=== PATIENT | male | born 1990 | race Caucasian/White ===

== ENCOUNTER → 2023-08-12 10:00 | Outpatient (CLI) | payer OTHER, SELFPAY ==
--- NOTE | ~2023-08-12 | US_ITS ---
EXAMINATION: US soft tissue LE LT DATE: 08/12/2023 10:48 INDICATION: Chronic palpable area at the left lower leg TECHNIQUE: Multiple grayscale and Doppler ultrasound images of the region of concern at the lateral l eft calf were obtained. COMPARISON: None FINDINGS: 3.0 x 1.3 x 3.0 cm hypoechoic mass with smooth well-defined margins in the subcutaneous tissues at th e region of concern. The mass abuts and exerts mild mass effect upon but does not transgress the unde rlying muscular fascia. Minimal vascular flow on color Doppler along the periphery of a small portion of the mass. No definitive internal vascular flow on color Doppler. IMPRESSION: 1. Nonspecific 3.0 x 1.3 x 3.0 cm subcutaneous hypoechoic lesion at the region of concern. This could represent either a complex cystic lesion such as an epidermoid cyst or neoplastic soft tissue mass w hich could be either benign or less likely malignant. Reviewed, dictated and finalized at location A. IMPRESSION: 1. Nonspecific 3.0 x 1.3 x 3.0 cm subcutaneous hypoechoic lesion at the region of concern. This could represent either a complex cystic lesion such as an epid ermoid cyst or neoplastic soft tissue mass which could be either benign or less likely malignant.
== END ==
PROVIDERS: PCP Nurse Practitioner; Visit Provider Nurse Practitioner
DX: R22.9 Localized swelling, mass and lump, unspecified (principal)
CPT/HCPCS: 76882

== ENCOUNTER 2023-09-09 02:33 | Day surgery (SDC) | payer OTHER, SELFPAY ==
[2023-09-04 09:38] VITALS: BMI 28.0
--- NOTE | 2023-09-04 09:42 | PC.NURSE ---
Report to the Outpatient Waiting Room, entrance under the green pavilion located off [facility], at time 1000 on date 09/09/23. Planned Procedure Time: 1100. Time changes happen often and if your time is changed the preop area will call you the afternoon before. - You and your visitor will be asked to self-screen and do not enter if you have any COVID symptoms. - A mask is optional within the hospital at this time. Patients may have LIGHT BREAKFAST. Take the following medications with a SIP of water the morning of surgery: PER USUAL DO NOT STOP ANY OF YOUR OTHER PRESCRIPTION MEDICATIONS PRIOR TO SURGERY ?EXCEPT THE FOLLOWING Medications to discontinue per physician: N/A Date to take last dose: N/A Please no make-up, nail central african, hairspray, perfume, deodorant, or body powder the day of surgery. No jewelry (including any body piercings) or valuables the day of surgery, leave them at home. Please take a shower or bath the night before, or the morning of, surgery with an antibacterial soap. Wear comfortable, loose fitting clothing. - Jewelry must be removed prior to entering the operating room. Rings and piercings that are not removed may be cut off. - The hospital will not accept responsibility for valuables. - Please leave all valuables, including medications, at home the day of surgery. YOU MAY DRIVE YOURSELF HOME AFTER SURGERY. Follow any additional instructions given to you from your surgeon. If you or anyone in your household have experienced Covid symptoms in the past week, please notify your surgeon or the nurse liaison at the phone number below for possible testing. Telephone instructions given to PT - MICHAEL MEADOWS and asked if any additional questions and then verbalized understanding. Patient advised to call surgeon office or pre surgery nurse liaison [phone] if any additional questions.
--- NOTE | 2023-09-09 13:04 | WPDHPUPDATE1 ---
History and Physical Update Update Date/Time: 09/09/23 13:04 History and Physical has been reviewed, including an updated exam of the patient. There are NO changes in the patient's condition. Risks, benefits, and alternatives have been discussed and questions answered. Patient agrees to proceed with procedure.
[2023-09-09 13:13] VITALS: BP 126/72; PULSE 83; RESP 14; O2SAT 97
[2023-09-09 13:20] VITALS: BP 125/75; PULSE 85; RESP 16; O2SAT 97
[2023-09-09 13:31] VITALS: BP 119/69; PULSE 87; RESP 16; O2SAT 97
[2023-09-09] MEDS: LIDO 1%/EPINEPHRINE 1:100,000 50 ML VIAL INFILTRATE (13:31)
[2023-09-09 13:46] VITALS: BP 116/69; PULSE 83; RESP 14; O2SAT 97
[2023-09-09 13:55] VITALS: BP 132/69; PULSE 85; RESP 16
--- NOTE | 2023-09-09 14:02 | P.OP_ITS ---
Procedure Note - Detailed Date of Procedure 09/09/23 Pre-op Diagnosis left lower extr sub cutaneous mass [id number] Post-op Diagnosis Other (Left lateral calf sebaceous cyst) Procedure Performed Excision left lateral capsule basis cyst with 4cm intermediate layered wound closure. Surgeon Corbin Stern MD Anesthesia Local Indications Patient is a 33-year-old gentleman presented this past slowly enlarging subcutaneous mass in the mid lateral left calf region. On clinical examination it appeard to be consistent with a sebaceous cyst. He presents now for excision. Findings Left lateral calf sebaceous cyst measuring 3 x 3 x 1.5cm. 4cm intermediate layered wound closure. Description of Procedure After informed consent was obtained patient brought to the operating room was placed in the modified right lateral decubitus position on the operating table. The area the left lateral mid calf region was then prepped and draped usual sterile fashion. A time-out was then performed correctly identifying the patient as well as procedure to be performed verifying the site marking. No antibiotics were given as this was a local anesthetic procedure. 1% lidocaine mixed with 0.5% Marcaine was injected around the cyst for local anesthetic effect. A longitudinal elliptical incision was made in the skin overlying the cyst with a scalpel and then sharp iris scissor and electrocautery dissection was used to shell out the wall the cyst from the surrounding skin and subcutaneous tissues. Once this was complete sized out with the attached ellipse of skin was measured it was 3x3x1.5cm. The specimens passed off table sent to pathology for examination. I then irrigated out the incision sterile saline solution hemostasis was then achieved utilizing electrocautery. The incision was then closed in multiple layers. Interrupted 2-0 Vicryl sutures were used in the deeper subcutaneous tissues followed by layer of interrupted 3- 0 Vicryl sutures in a deep dermal layer. The skin edges were then approximated lies in a running subcuticular 4-0 Monocryl suture. The incision was then cleaned the skin glue was applied. The length of the intermediate layered wound closure was 4cm. Implants None Estimated Blood Loss 5 Drains No Packing No Pathology Yes (Sebaceous cyst to pathology) Complications No immediate complications Condition Stable Disposition PACU [facility] Billing Surgery - Charge Forward: Surgery Billing
== END 2023-09-09 14:11 | disposition home or self-care (01) ==
PROVIDERS: PCP Nurse Practitioner; Visit Provider Surgery
PROC: (CPT 11406; principal; 2023-09-09 13:30)
DX: L72.0 Epidermal cyst (principal)
CPT/HCPCS: 11406; 12032; 88304